=== PATIENT | male | born 1955 | race Caucasian/White ===

== ENCOUNTER 2020-03-27 09:11 | Emergency (ER) | payer MEDICARE, MEDICAID ==
[~2020-03-27] VITALS: Ht 177.8 cm; Wt 96.1 kg
[~2020-03-27 09:11] MED LIST: EMTR1TAB9 PO
[2020-03-27] MEDS ORDERED: OXYcodone/APAP 5/325MG TABLET ONE (10:13)
[2020-03-27] MEDS ORDERED: OXYcodone/APAP 5/325MG TABLET PO ONE (10:30)
--- NOTE | 2020-03-27 10:32 | NUR ---
PT REFUSED PERCOCET. MEDS RETURNED WITH NEGRITA MCNEIL. PT STATES HE DOESNT NEED ANYTHING FOR PAIN AT THIS TIME
--- NOTE | 2020-03-27 10:37 | NUR ---
INCENTIVE SPIROMETER TEACHING CONDUCTED
--- NOTE | 2020-03-27 10:55 | NUR ---
REPORT FROM KRAIG REES.
[2020-03-27 11:03] VITALS: BP 109/82
== END 2020-03-27 11:19 | disposition home or self-care (01) ==
LOC: ED 10:13
DX: S20.211A Contusion of right front wall of thorax, initial encounter (principal); Z21 Asymptomatic human immunodeficiency virus [HIV] infection status; Y04.8XXA Assault by other bodily force, initial encounter; Y93.89 Activity, other specified; Y92.410 Unspecified street and highway as the place of occurrence of the external cause; Y99.8 Other external cause status
CPT/HCPCS: 99283

== ENCOUNTER → 2021-03-15 | Outpatient (CLI) | payer MEDICARE | END | disposition home or self-care (01) | LOC: CVU 08:03 | PROVIDERS: ATTEND Internal Medicine Cardiovascular Disease | DX: I08.3 Combined rheumatic disorders of mitral, aortic and tricuspid valves (principal); I25.10 Atherosclerotic heart disease of native coronary artery without angina pectoris; I71.9 Aortic aneurysm of unspecified site, without rupture | CPT/HCPCS: 93306; 93356 ==